=== PATIENT | female | born 1990 | race Caucasian/White ===

== ENCOUNTER 2023-09-27 14:04 | Emergency (ER) | payer OTHER, SELFPAY ==
[2023-09-27 14:08] VITALS: BP 109/73
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
[2023-09-27] MEDS: ADACEL 0.5 ML IM (15:43)
== END 2023-09-27 15:55 | disposition home or self-care (01) ==
LOC: EMR 14:04
PROVIDERS: EMERGENCY PHYSICIAN Emergency Medicine; FAMILY PHYSICIAN Family Medicine
DX: S60.417A Abrasion of left little finger, initial encounter (principal); W25.XXXA Contact with sharp glass, initial encounter; Z87.891 Personal history of nicotine dependence; Z23 Encounter for immunization
CPT/HCPCS: 99283; 90471; 73140; 90715

== ENCOUNTER 2024-12-06 16:55 | Emergency (ER) | payer OTHER, SELFPAY ==
[2024-12-06 16:57] VITALS: BP 121/84
[2024-12-06 17:00] VITALS: BMI 26.0
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
== END 2024-12-06 17:30 | disposition home or self-care (01) ==
LOC: EMR 16:55
PROVIDERS: EMERGENCY PHYSICIAN Emergency Medicine; FAMILY PHYSICIAN Family Medicine
DX: S05.92XA Unspecified injury of left eye and orbit, initial encounter (principal); W20.8XXA Other cause of strike by thrown, projected or falling object, initial encounter
CPT/HCPCS: 99282